=== PATIENT | female | born 1975 | race Caucasian/White ===

== ENCOUNTER 2018-11-07 17:06 | Emergency (ER) | payer MEDICAID ==
[~2018-11-07] VITALS: Ht 162.6 cm; Wt 81.6 kg
[2018-11-07 17:14] VITALS: BP 117/69
--- NOTE | 2018-11-07 17:57 | NUR ---
Patient ambulated to bed 1 with family. RN evaluating patient at bedside.
--- NOTE | 2018-11-07 18:00 | NUR ---
C/O LEFT FLANK PAIN X2 DAYS, +NAUSEA, WENT TO URGENT CARE TODAY WITH DX OF TITUS JOVEL, REFFERED TO ER. HX OF ASTHMA. DENIES N/V/D; SKIN IS PINK/WARM/DRY; AAOX4 WITH EVEN AND STEADY GAIT; LUNGS CLEAR BL; HR EVEN AND REGULAR; PT DENIES ANY FEVER, CP, SOB, OR COUGH AT THIS TIME; PATIENT STATES PAIN OF 10/10 AT THIS TIME; VSS; PATIENT POSITIONED FOR COMFORT; HOB ELEVATED; BEDRAILS UP X2; BED DOWN. ER MD MADE AWARE OF PT STATUS.
[2018-11-07] MEDS ORDERED: NACL 0.9% 1,000 ML IV SCH (18:29)
[2018-11-07] MEDS ORDERED: MORPHINE SULFATE 4 MG/ML SYR IVP ONE ×2 (18:30→19:45)
[2018-11-07 18:44] LABS: APPEARANCE,URINE HAZY (CLEAR); BILIRUBIN,URINE NEGATIVE (NEGATIVE); BLOOD, URINE NEGATIVE (NEGATIVE); COLOR,URINE YELLOW (YELLOW); LEUKOCYTE ESTERASE ,URINE NEGATIVE (NEGATIVE); NITRITE, URINE NEGATIVE (NEGATIVE); UGLUCOSE NEGATIVE (NEGATIVE)
[2018-11-07 19:03] LABS: BASOPHILS % (AUTO) 0.3 % (0.0-2.0); EOSINOPHILS # (AUTO) 0.4 K/uL (0-0.4); EOSINOPHILS % (AUTO) 3.7 % (0.0-4.0); HEMATOCRIT 40.4 % (36-48); HEMOGLOBIN 13.6 g/dL (12.0-16.0); LYMPHOCYTES # (AUTO) 2.6 K/uL (2.5-16.5); LYMPHOCYTES % (AUTO) 26.8 % (20.5-51.1); MEAN CORPUSCULAR HEMOGLOBIN 29 pg (27-31); MEAN CORPUSCULAR HGB CONC 34 g/dL (33-37); MEAN CORPUSCULAR VOLUME 86.1 fL (80-94); MONOCYTES # (AUTO) 0.7 K/uL (0.8-1.0); NEUTROPHILS # (AUTO) 6.1 K/uL (1.8-7.7); NEUTROPHILS % (AUTO) 62.2 % (42.2-75.2); PLATELET COUNT (AUTO) 361 K/uL (140-450); RED BLOOD CELL COUNT(AUTO) 4.69 MIL/uL (4.20-5.40); RED CELL DISTRIBUTION WIDTH 13.7 % (11.6-13.7); WHITE BLOOD COUNT (AUTO) 9.9 K/uL (4.8-10.8)
--- NOTE | 2018-11-07 19:04 | NUR ---
endorsed pt to pm nurse.
--- NOTE | 2018-11-07 19:35 | NUR ---
DR. WRIGHT BEDSIDE EVALUATING PT
[2018-11-07 20:33] LABS: ANION GAP 15.3 (8-16); CARBON DIOXIDE 26.7 mmol/L (21-32); CREATININE 0.7 mg/dL (0.6-1.3)
[2018-11-07 20:38] LABS: ALBUMIN 3.8 g/dL (3.4-5.0); TOTAL BILIRUBIN 0.2 mg/dL (0.0-1.0)
[2018-11-07 21:07] VITALS: BP 117/69
--- NOTE | 2018-11-07 21:07 | NUR ---
Patient discharged with v/s stable. Written and verbal after care instructions given and explained. Patient verbalized understanding. Ambulatory with steady gait. All questions addressed prior to discharge. Advised to follow up with PMD. PT WAS EDUCATED TO FOLLOW UP WITH PCP TOMORROW FOR FOLLOW UP CARE.
== END 2018-11-07 21:07 | disposition home or self-care (01) ==
LOC: MED 17:06
DX: K57.90 Diverticulosis of intestine, part unspecified, without perforation or abscess without bleeding (principal); J45.909 Unspecified asthma, uncomplicated; Z90.710 Acquired absence of both cervix and uterus; Z88.5 Allergy status to narcotic agent; Z88.8 Allergy status to other drugs, medicaments and biological substances
CPT/HCPCS: 36415; 74176; 80053; 81003; 81025; 83690; 85025; 96374; 96376; 99284; J2270; J7030

== ENCOUNTER 2019-05-28 19:44 | Emergency (ER) | payer MEDICAID ==
[~2019-05-28] VITALS: Ht 162.6 cm; Wt 90.7 kg
[2019-05-28 20:10] VITALS: BP 114/56
--- NOTE | 2019-05-28 22:32 | NUR ---
AMBULATED TO ER BED 9
--- NOTE | 2019-05-28 23:00 | NUR ---
44 YO F BIB SELF AND PRESENTS TO ED C/O CONSTANT 10/10 RUQ AND EPIGASTRIC PAIN THAT ALTERNATES BETWEEN FEELING SHARP AND DULL WITH N/V SINCE 0300 THIS MORNING. PT REPORTS HAVING SIMILAR PAIN IN THE PAST BUT NEVER THIS INTENSE. DENIES TREATING WITH PAIN MEDICATION AT HOME. LAST BM THIS MORNING; PT REPORTS NORMAL. DENIES DIARRHEA OR CONSTIPATION. ABD IS LARGE, SOFT, PLIABLE. REBOUND TENDERNESS TO RUQ NOTED DURING ERMD ASSESSMENT. PT IS CALM, COOPERATIVE. A/O X 4. SKIN PINK, WARM, DRY. BREATHING EVEN. UNLABORED. PMH-- ASTHMA RX-- INHALER NEEDED
--- NOTE | 2019-05-28 23:00 | NUR ---
DR. LIZ GRIFFITHS AT BEDSIDE.
[2019-05-28] MEDS ORDERED: NACL 0.9% 500 ML IV ONE (23:11)
[2019-05-28] MEDS ORDERED: fentaNYL 0.05 MG/ML VIAL IVP ONE (23:15)
[2019-05-28] MEDS ORDERED: ONDANSETRON 4 MG/2 ML VIAL IVP ONE (23:15)
--- NOTE | 2019-05-28 23:50 | NUR ---
MEDICATED WITH 0.5 MCG FENTANYL FOR 10/10 ABD PAIN. WILL REASSESS.
[2019-05-28 23:54] LABS: BASOPHILS % (AUTO) 0.3 % (0.0-2.0); EOSINOPHILS # (AUTO) 0.1 K/uL (0-0.4); EOSINOPHILS % (AUTO) 0.7 % (0.0-4.0); HEMATOCRIT 40.1 % (36-48); HEMOGLOBIN 13.2 g/dL (12.0-16.0); LYMPHOCYTES # (AUTO) 2.3 K/uL (2.5-16.5); LYMPHOCYTES % (AUTO) 16.4 % (20.5-51.1); MEAN CORPUSCULAR HEMOGLOBIN 28 pg (27-31); MEAN CORPUSCULAR HGB CONC 33 g/dL (33-37); MEAN CORPUSCULAR VOLUME 86.1 fL (80-94); MONOCYTES % (AUTO) 7.1 % (1.7-9.3); NEUTROPHILS # (AUTO) 10.5 K/uL (1.8-7.7); NEUTROPHILS % (AUTO) 75.5 % (42.2-75.2); PLATELET COUNT (AUTO) 416 K/uL (140-450); RED BLOOD CELL COUNT(AUTO) 4.65 MIL/uL (4.20-5.40)
--- NOTE | 2019-05-28 23:55 | NUR ---
PHLEB ATTEMPTING BLOOD DRAW AT BEDSIDE.
[2019-05-29 00:02] LABS: ANION GAP 13.3 (8-16); CREATININE 1.1 mg/dL (0.6-1.3); POTASSIUM 3.3 mmol/L (3.5-5.1)
--- NOTE | 2019-05-29 00:05 | NUR ---
US AT BEDSIDE.
[2019-05-29 00:08] LABS: ALBUMIN 3.6 g/dL (3.4-5.0); TOTAL BILIRUBIN 0.4 mg/dL (0.0-1.0)
--- NOTE | 2019-05-29 00:10 | NUR ---
PT REPORTS NO PAIN RELIEF; 10/[address] HILL NOTIFED.
[2019-05-29] MEDS ORDERED: fentaNYL 0.05 MG/ML VIAL IVP ONE (00:25)
--- NOTE | 2019-05-29 00:40 | NUR ---
MEDICATED WITH 0.5 MCG FENTANYL IVP FOR 10/10 ABD PAIN. WILL REASSESS IN 15-20 MINS.
--- NOTE | 2019-05-29 01:30 | NUR ---
PT IS RESTING IN BED WITH EYES CLOSED AND VSS. APPEARS TO BE SLEEPING. AROUSABLE TO LIGHT TOUCH AND VERBAL STIMULI. PT AWAKENS AND STATES "I'M STILL HAVING 9/10 PAIN WHENEVER I BREATHE IN. THE FENTANYL DIDN'T HELP". PT CLOSES EYES AGAIN AND RETURNS TO RESTING. DR. HILL MADE AWARE OF PAIN STATUS.
--- NOTE | 2019-05-29 02:35 | NUR ---
DR. HILL REEVAL AT BEDSIDE.
[2019-05-29 02:51] VITALS: BP 97/48
--- NOTE | 2019-05-29 02:51 | NUR ---
Patient discharged with v/s stable. Written and verbal after care instructions given and explained. Patient alert, oriented and verbalized understanding of instructions. Ambulatory with steady gait. All questions addressed prior to discharge. ID band removed. Patient advised to follow up with PMD. Rx of Zofran and Tramadol given. Patient educated on indication of medication including possible reaction and side effects. Opportunity to ask questions provided and answered.
== END 2019-05-29 02:15 | disposition home or self-care (01) ==
LOC: MED 19:44
DX: R16.0 Hepatomegaly, not elsewhere classified (principal); R11.10 Vomiting, unspecified; J45.909 Unspecified asthma, uncomplicated; Z90.710 Acquired absence of both cervix and uterus; Z88.5 Allergy status to narcotic agent; Z88.8 Allergy status to other drugs, medicaments and biological substances
CPT/HCPCS: 36415; 76705; 80053; 83690; 85025; 96361; 96374; 96375; 96376; 99284; J2405; J3010; J7030; Q0092

== ENCOUNTER 2020-11-01 11:27 | Inpatient (IN) | payer MEDICAID, SELFPAY ==
[~2020-11-01] VITALS: Ht 162.6 cm; Wt 71.7 kg
[2020-11-01 11:37] VITALS: BP 125/61
--- NOTE | 2020-11-01 12:05 | NUR ---
TO ER BED #3
--- NOTE | 2020-11-01 12:21 | NUR ---
45 Y/O FEMALE C/O HEMATURIA X TODAY, L FLANK PAIN X 2MONTHS. PAIN IS INTERMITTENT BUT THE PAIN IS WORSE TODAY. PT RATES PAIN 9/10 THAT SHE DESCRIBES "SHARP PAIN" AND THAT IT IF FEELS LIKE THERES AN "AIR BUBBLE". PT C/O HEMATURNA, URINARY FREQUENCY AND PAIN AT THE END OF URINATING. PT A/O X4 WITH EVEN AND UNLABORED RESPIRATIONS PMH: ASTHMA, HYSTERECTOMY ALLERGIES:IBUPROFEN AND CODEINE
--- NOTE | 2020-11-01 12:29 | NUR ---
DR SOMERS AT BEDSIDE
[2020-11-01] MEDS ORDERED: ONDANSETRON 4 MG/2 ML VIAL IVP ONE ×2 (12:40→15:20)
[2020-11-01] MEDS ORDERED: KETOROLAC 30 MG/ML VIAL IVP ONE (12:40)
[2020-11-01] MEDS ORDERED: fentaNYL citrate 0.05 MG/ML VIAL IVP ONE ×2 (12:40→15:20)
--- NOTE | 2020-11-01 12:47 | NUR ---
PT TAKEN TO CT VIA W/C
[2020-11-01 13:48] LABS: BASOPHILS # (AUTO) 0.1 K/uL (0.00-0.22); BASOPHILS % (AUTO) 0.5 % (0.0-2.0); EOSINOPHILS # (AUTO) 0.1 K/uL (0-0.4); HEMATOCRIT 38.8 % (36-48); LYMPHOCYTES # (AUTO) 1.5 K/uL (2.5-16.5); LYMPHOCYTES % (AUTO) 13.4 % (20.5-51.1); MEAN CORPUSCULAR HEMOGLOBIN 29 pg (27-31); MEAN CORPUSCULAR HGB CONC 34 g/dL (33-37); MEAN CORPUSCULAR VOLUME 87.3 fL (80-94); MONOCYTES # (AUTO) 0.7 K/uL (0.8-1.0); MONOCYTES % (AUTO) 5.9 % (1.7-9.3); NEUTROPHILS # (AUTO) 8.9 K/uL (1.8-7.7); NEUTROPHILS % (AUTO) 79.2 % (42.2-75.2); PLATELET COUNT (AUTO) 360 K/uL (140-450); RED BLOOD CELL COUNT(AUTO) 4.44 MIL/uL (4.20-5.40); RED CELL DISTRIBUTION WIDTH 14.6 % (11.6-13.7); WHITE BLOOD COUNT (AUTO) 11.3 K/uL (4.8-10.8)
[2020-11-01 13:58] LABS: ANION GAP 17.3 (8-16); CARBON DIOXIDE 27.6 mmol/L (21-32); CREATININE 0.6 mg/dL (0.6-1.3); POTASSIUM 3.9 mmol/L (3.5-5.1)
[2020-11-01] MEDS ORDERED: cefTRIAXone 1,000 MG VIAL ONE (13:59)
[2020-11-01] MEDS ORDERED: MORPHINE SULFATE 4 MG/ML SYR IVP ONE ×2 (14:00→14:35)
--- NOTE | 2020-11-01 14:05 | NUR ---
PT C/O SEVERE FLANK PAIN. REQUESTING FURTHER PAIN MEDICATIONS. ERMD MADE AWARE. DIMMED PTS LIGHTS FOR COMFORT.
[2020-11-01 14:18] LABS: ALBUMIN 3.9 g/dL (3.4-5.0); TOTAL BILIRUBIN 0.6 mg/dL (0.0-1.0)
[2020-11-01 14:39] LABS: BILIRUBIN,URINE NEGATIVE (NEGATIVE); BLOOD, URINE 3+ (NEGATIVE); LEUKOCYTE ESTERASE ,URINE 2+ (NEGATIVE); NITRITE, URINE POSITIVE (NEGATIVE); UGLUCOSE TRACE (NEGATIVE)
[2020-11-01 14:43] LABS: COLOR,URINE ORANGE (YELLOW)
[2020-11-01 14:59] LABS: APPEARANCE,URINE HAZY (CLEAR); RBC,URINE NONE SEEN /HPF (0-5)
--- NOTE | 2020-11-01 15:30 | NUR ---
PT STILL C/O 01/27 FLANK PAIN. PT REQUESTING MORE PAIN MEDS. ERMD MADE AWARE. PT GIVEN TOWELS TO PUT PRESSURE ON HER BACK.
[2020-11-01] MEDS ORDERED: HYDROcodone/APAP 5/325 MG 1 TAB TAB PO PRN (17:15)
[2020-11-01] MEDS ORDERED: LORazepam 2 MG/ML VIAL IM/IVP PRN (17:15)
[2020-11-01] MEDS ORDERED: MORPHINE SULFATE 2 MG/ML SYR IVP PRN (17:15)
[2020-11-01] MEDS ORDERED: ACETAMINOPHEN 325 MG TAB PO PRN (17:15)
[2020-11-01] MEDS ORDERED: ONDANSETRON 4 MG/2 ML VIAL IVP PRN (17:15)
[2020-11-01] MEDS: NACL 0.9% 1,000 ML IV SCH (17:45)
--- NOTE | 2020-11-01 17:48 | NUR ---
PT GIVEN DINNER TRAY. PT ON MATTRESS RENOVATOR. VSS. WILL CONTINUE TO MONITOR
[2020-11-01 18:09] LABS: PROTHROMBIN TIME 9.6 secs (10.8-13.4)
--- NOTE | 2020-11-01 18:13 | NUR ---
DR BRISCOE AT BEDSIDE EVALUATING PT
[2020-11-01 18:16] LABS: BARBITURATE, URINE NEGATIVE ng/ml (NEG <=200); BENZODIAZEPINE, URINE NEGATIVE ng/mL (NEG <=200); CANNABINOID, URINE NEGATIVE ng/mL (NEG <=50); COCAINE, URINE NEGATIVE ng/mL (NEG <=300); OPIATE, URINE NEGATIVE ng/mL (NEG <=2000); PHENCYCLIDINE SCREEN,URINE NEGATIVE ng/mL (NEG <=25)
[2020-11-01 18:17] LABS: CHOL/HDL RATIO 2.9 (1-4.5); FREE T4 (FREE THYROXINE) 1.02 ng/dL (0.76-1.46); MAGNESIUM 2.1 mg/dL (1.8-2.4); THYROID STIMULATING HORMONE 1.66 uIU/mL (0.34-3.74)
[2020-11-01] MEDS ORDERED: KETOROLAC 30 MG/ML VIAL IM PRN (18:35)
--- NOTE | 2020-11-01 18:40 | NUR ---
PT C/O NAUSEA, GIVEN EMESIS BAG. ORDER OF PRN ZOFRAN GIVEN Addendum: 11/01/20 at 1913 by [email or web address] PT VOMITED.
--- NOTE | 2020-11-01 19:14 | NUR ---
REPORT GIVEN TO YUAN BOWEN, TRANSFER OF CARE AT THIS TIME
--- NOTE | 2020-11-01 20:25 | NUR ---
REPORT GIVEN FROM ER NURSE. ADMITTED A 45 Y/O FEMALE A O X4 NO ACUTE DISTRESS. RESPIRATION EVEN AND UNLABORED. DX: INTRACTABLE FLANK PAIN, URETHRITIS, PYELONEPHRITIS, UTI. IVF OF NS INFUSING 100 ML/HR. DENIES PAIN AT THIS TIME. SAFETY MEASURES IN PLACE. CALL LIGHT WITHIN REACH. MRSA SCREENING DONE. PATIENT IN BED RESTING COMFORTABLY.
--- NOTE | 2020-11-01 20:30 | NUR ---
Patient will be admitted to care of DR. BRISCOE. Admited to TELEMETRY. Will go to room 104B. Belongings list completed. Report to DEBORAH BOWEN. PT TRANSPORTED BY 2 RN'S VIA [facility]. VSS PRIOR TRANSPORT.
[2020-11-01] MEDS: ZOLPIDEM 5 MG TAB PO PRN (22:31)
--- NOTE | 2020-11-01 22:33 | NUR ---
PATIENT COMPLAINED OF INABILITY TO SLEEP, AMBIEN PRN GIVEN PER MD ORDERED.
[2020-11-02] VITALS: BP 86/51
[2020-11-02] MEDS: NACL 0.9% 1,000 ML IV SCH ×4 (03:15→23:15)
[2020-11-02 04:00] VITALS: BP 96/41
[2020-11-02 06:52] LABS: ANION GAP 8.5 (8-16); CARBON DIOXIDE 31.1 mmol/L (21-32); CREATININE 0.6 mg/dL (0.6-1.3); POTASSIUM 3.6 mmol/L (3.5-5.1)
[2020-11-02 06:53] LABS: BASOPHILS % (AUTO) 0.1 % (0.0-2.0); EOSINOPHILS # (AUTO) 0.1 K/uL (0-0.4); HEMATOCRIT 36.2 % (36-48); LYMPHOCYTES # (AUTO) 2.4 K/uL (2.5-16.5); LYMPHOCYTES % (AUTO) 23.1 % (20.5-51.1); MEAN CORPUSCULAR HEMOGLOBIN 29 pg (27-31); MEAN CORPUSCULAR HGB CONC 33 g/dL (33-37); MEAN CORPUSCULAR VOLUME 88.6 fL (80-94); MONOCYTES # (AUTO) 0.7 K/uL (0.8-1.0); MONOCYTES % (AUTO) 6.9 % (1.7-9.3); NEUTROPHILS # (AUTO) 7.3 K/uL (1.8-7.7); NEUTROPHILS % (AUTO) 68.9 % (42.2-75.2); PLATELET COUNT (AUTO) 349 K/uL (140-450); RED BLOOD CELL COUNT(AUTO) 4.09 MIL/uL (4.20-5.40); RED CELL DISTRIBUTION WIDTH 14.7 % (11.6-13.7); WHITE BLOOD COUNT (AUTO) 10.6 K/uL (4.8-10.8)
[2020-11-02 07:06] LABS: MAGNESIUM 2.2 mg/dL (1.8-2.4); PHOSPHORUS 4.7 mg/dL (2.5-4.9)
--- NOTE | 2020-11-02 07:20 | NUR ---
ENDORSED TO MORNING NURSE FOR CONTINUITY OF CARE. PATIENT STABLE.
--- NOTE | 2020-11-02 07:25 | NUR ---
PT RECEIVED FROM CASING COOKER NURSE. EYES CLOSED EASY TO AROUSE. BREATHING SYMMETRICAL. PT ON ROOM AIR. NO S/S OF DISTRESS. NO COMPLAINS OF PAIN AT THIS TIME . PT IS ABLE TO MAKE NEEDS KNOWN. CALL LIGHT WITHIN REACH. ALL SAFETY MEASURES ARE IN PLACE
[2020-11-02 08:00] VITALS: BP 110/93
--- NOTE | 2020-11-02 08:55 | NUR ---
PATIENT HAS BEEN SCREENED AND CATEGORIZED HIGH NUTRITION RISK. PATIENT WILL BE SEEN WITHIN 1-2 DAYS OF ADMISSION. 11/02/20-11/03/20 RECEIVED FNS REFERRAL FOR UNINTENTIONAL WEIGHT LOSS. KIARA ORTIZ RD
--- NOTE | 2020-11-02 09:07 | NUR ---
PT RESTING IN BED. DENIES PAIN AT THIS TIME. PT DID NOT LIKE FOOD. NUTRITION NUMBER PROVIDED.
--- NOTE | 2020-11-02 09:23 | NUR ---
MEDICATIONS GIVEN PER MD ORDER. PT EDUCATED VERBALIZED UNDERSTANDING. PT TOLERATED WELL. CALL LIGHT WITHIN REACH. ALL SAFETY MEASURES ARE IN PLACE
--- NOTE | 2020-11-02 11:42 | NUR ---
PT ROUNDED ON. SON AT BEDSIDE. BREATHING SYMMETRICAL. PT ON ROOM AIR. NO S/S OF DISTRESS. NO COMPLAINS OF PAIN AT THIS TIME . PT IS ABLE TO MAKE NEEDS KNOWN. CALL LIGHT WITHIN REACH. ALL SAFETY MEASURES ARE IN PLACE
--- NOTE | 2020-11-02 13:20 | NUR ---
PT DENIES PAIN. PT RESTING COMFORTABLY IN BED. ALL SAFETY MEASURES ARE IN PLACE. CALL LIGHT WITHIN REACH.
[2020-11-02] MEDS: DOCUSATE SODIUM 100 MG GELCAP PO PRN (13:40)
--- NOTE | 2020-11-02 14:08 | NUR ---
11/02/20 RD INITIAL ASSESSMENT COMPLETED PLEASE REFER TO NUTRITION ASSESSMENT UNDER CARE ACTIVITY FOR ESTIMATED NUTRITIONAL NEEDS. 1. CONTINUE REGULAR DIET TOLERATED 2. FOLLOW PATIENTS FOOD PREFERENCE OF NO RED MEAT 3. RD PROVIDED NUTRITION RECOMMENDATIONS TO INCREASE WHOLE GRAIN CONSUMPTION. PATIENT ACCEPTED 4. RD TO FOLLOW-UP 5-7 DAYS, LOW RISK KIARA ORTIZ, RD
--- NOTE | 2020-11-02 15:39 | NUR ---
PT ROUNDED ON. PT STATES NO PAIN AND EDUCATED ON DX. NO S/S OF DISTRESS. ALL SAFETY MEASURES IN PLACE. CALL LIGHT WITHIN REACH.
--- NOTE | 2020-11-02 16:15 | NUR ---
PT DOES NOT FEEL COMFORTABLE WITH ROOMMATE. PT EDUCATED. PT STATES SHE WILL GO HOME IF SHE HAS ONE
--- NOTE | 2020-11-02 18:00 | NUR ---
PT IV FLUIDS CHANGED. KIDS AT BEDSIDE. PT STATES SHE WANTS TO GO HOME TOMORROW BY NOON.
--- NOTE | 2020-11-02 19:15 | NUR ---
RECEIVED PATIENT FROM AM NURSE. PT ON BED RESTING WITH DAUGHTER AT BEDSIDE. NO DISTRESS. SKIN WARM AND DRY TO TOUCH. ON ROOM AIR . EWING CATHETER IN PLACE. BILATERAL LOWER EXTREMITIES DRESSING CLEAN AND DRY. CALL LIGHT WITHIN REACH. WILL CONTINUE TO MONITOR.
--- NOTE | 2020-11-02 19:29 | NUR ---
RECEIVED PATIENT FROM AM NURSE STEPHANE. PATIENT ON BED RESTING. IVF OF NS INFUSING IN THE LEFT FOREARM. NO DISTRESS. DENIES PAIN. AFEBRILE. CALL LIGHT WITHIN REACH. WILL CONTINUE TO MONITOR.
--- NOTE | 2020-11-02 19:29 | NUR ---
PT ENDORSED TO COMMISSIONER OF OFFICIALS RN FOR CONTINUITY OF CARE. PT STABLE.
[2020-11-02 20:00] VITALS: BP 103/54
[2020-11-02] MEDS: ZOLPIDEM 5 MG TAB PO PRN (22:38)
--- NOTE | 2020-11-02 22:40 | NUR ---
PATIENT UNABLE TO SLEEP ,AMBIEN GIVEN PER MD ORDERED.
--- NOTE | 2020-11-03 03:43 | NUR ---
CHECKED PT, ASLEEP IN BED.
[2020-11-03] MEDS: NACL 0.9% 1,000 ML IV SCH ×2 (03:45→09:15)
[2020-11-03 04:00] VITALS: BP 90/50
[2020-11-03 06:39] LABS: PHOSPHORUS 3.5 mg/dL (2.5-4.9)
[2020-11-03 06:40] LABS: ANION GAP 12.6 (8-16); CARBON DIOXIDE 24.8 mmol/L (21-32); CREATININE 0.5 mg/dL (0.6-1.3); POTASSIUM 3.4 mmol/L (3.5-5.1)
[2020-11-03 06:46] LABS: BASOPHILS % (AUTO) 0.6 % (0.0-2.0); EOSINOPHILS # (AUTO) 0.3 K/uL (0-0.4); EOSINOPHILS % (AUTO) 4.3 % (0.0-4.0); HEMOGLOBIN 11.1 g/dL (12.0-16.0); LYMPHOCYTES # (AUTO) 2.4 K/uL (2.5-16.5); LYMPHOCYTES % (AUTO) 34.2 % (20.5-51.1); MEAN CORPUSCULAR HEMOGLOBIN 29 pg (27-31); MEAN CORPUSCULAR HGB CONC 34 g/dL (33-37); MEAN CORPUSCULAR VOLUME 87.7 fL (80-94); MONOCYTES # (AUTO) 0.5 K/uL (0.8-1.0); MONOCYTES % (AUTO) 7.2 % (1.7-9.3); NEUTROPHILS # (AUTO) 3.8 K/uL (1.8-7.7); NEUTROPHILS % (AUTO) 53.7 % (42.2-75.2); PLATELET COUNT (AUTO) 312 K/uL (140-450); RED BLOOD CELL COUNT(AUTO) 3.77 MIL/uL (4.20-5.40); RED CELL DISTRIBUTION WIDTH 14.8 % (11.6-13.7); WHITE BLOOD COUNT (AUTO) 7.1 K/uL (4.8-10.8)
--- NOTE | 2020-11-03 07:16 | NUR ---
ENDORSED TO AM NURSE FOR CONTINUITY OF CARE. PT STABLE.
--- NOTE | 2020-11-03 07:16 | NUR ---
RECEIVED PATIENT FROM NIGHT NURSE. PATIENT IN BED AWAKE AND ALERT. RESP EVEN AND UNLABORED ON ROOM AIR. C/O MILD PAIN BUT TOLERABLE AT THIS TIME. LFA 20G INFUSING NS. PLAN OF CARE DISCUSSED, PATIENT VERBALIZED UNDERSTANDING. HOB ELEVATED, SAFETY MEASURES IN PLACE. BED IN LOW POSITIONS. CALL LIGHT WITHIN REACH. WILL CONTINUE TO MONITOR.
[2020-11-03] MEDS ORDERED: POTASSIUM CHLORIDE 10 MEQ TABER PO SCH (09:30)
[2020-11-03] MEDS: DOCUSATE SODIUM 100 MG GELCAP PO PRN (10:04)
--- NOTE | 2020-11-03 10:33 | NUR ---
PATIENT IN BED AWAKE AND ALERT. MORNING ROUTINE MEDICATION UNABLE TO GIVE D/T NO IV ACCESS. SEVERAL ATTEMPTS MADE UNSUCCESSFUL. DR BRISCOE MADE AWARE AND GAVE ORDER FOR ROCEPHIN 1GM IM X1 AND DULCOLAX 10MG PO PRN X1 FOR CONSTIPATION. ORDERS READBACK CONFIRMED AND CARRIED OUT.
[2020-11-03] MEDS ORDERED: cefTRIAXone 1,000 MG in LIDOCAINE MPF 1% 2.1 ML IM ONE (10:40)
[2020-11-03] MEDS ORDERED: cefTRIAXone 1,000 MG in LIDOCAINE MPF 1% 2.1 ML INJ SCH (11:00)
[2020-11-03] MEDS ORDERED: bisacodyL 5 MG TABEC PO SCH (11:00)
[2020-11-03] MEDS ORDERED: LACT-2 (12:04)
[2020-11-03] MEDS ORDERED: SULF-59 PO (12:04)
--- NOTE | 2020-11-03 12:31 | NUR ---
PATIENT RECEIVED DISCHARGE ORDER. WILL FOLLOW UP WITH PATIENT FOR NEUROBIOLOGIST TIME. PATIENT IN BED AWAKE AND ALERT. NO NOTED DISTRESS. CALL LIGHT WITHIN REACH. WILL CONTINUE TO MONITOR.
[2020-11-03 12:39] VITALS: BP 99/54
--- NOTE | 2020-11-03 13:37 | NUR ---
PATIENT LEFT DISCHARGED HOME WITH SON. DISCHARGE INSTRUCTIONS GIVEN, PATIENT VERBALIZED UNDERSTANDING. VACC N/A AT THIS TIME. PATIENT LEFT WITH ALL PERSONAL BELONGINGS. PATIENT LEFT IN STABLE CONDITION.
== END 2020-11-03 13:35 | disposition home or self-care (01) | DRG 463 ==
LOC: MED 11:27 → MTU 17:19
PROVIDERS: ADMIT Family Medicine; ATTEND Family Medicine
DX: N12 Tubulo-interstitial nephritis, not specified as acute or chronic (principal); E78.5 Hyperlipidemia, unspecified; F15.10 Other stimulant abuse, uncomplicated; R31.9 Hematuria, unspecified; N28.89 Other specified disorders of kidney and ureter; Z20.822 Contact with and (suspected) exposure to COVID-19
CPT/HCPCS: 36415; 71045; 80048; 80053; 80305; 81001; 82150; 83036; 83690; 83735; 83880; 84100; 84439; 84443; 84484; 85025; 85610; 85730; 87081; 87086; 96365; 96366; 96372; 96376; 99285; J0696; J2001; J2270; J2405; J3010; J7060

== ENCOUNTER 2021-02-27 04:04 | Emergency (ER) | payer MEDICAID, SELFPAY ==
[~2021-02-27] VITALS: Ht 162.6 cm; Wt 67.1 kg
[~2021-02-27 04:04] MED LIST: LACT-2; SULF-59 PO
[2021-02-27 04:12] VITALS: BP 110/63
--- NOTE | 2021-02-27 04:15 | NUR ---
TO LOBBY AMBULATORY
[2021-02-27] MEDS ORDERED: NITR100C7 PO (04:49)
[2021-02-27] MEDS ORDERED: PHEN-1877 PO (04:49)
[2021-02-27 04:55] VITALS: BP 110/63
--- NOTE | 2021-02-27 04:55 | NUR ---
SEEND AND DISCHARGED BY NOREEN HENRIQUEZ. NO NURSING INTERVENTIONS NEEDED. Patient discharged with v/s stable. Written and verbal after care instructions given and explained. Patient alert, oriented and verbalized understanding of instructions. Ambulatory with steady gait. All questions addressed prior to discharge. ID band removed. Patient advised to follow up with PMD. Rx of MACROBID AND PYRIDIUM given. Patient educated on indication of medication including possible reaction and side effects. Opportunity to ask questions provided and answered.
== END 2021-02-27 04:55 | disposition home or self-care (01) ==
LOC: MED 04:04
DX: N39.0 Urinary tract infection, site not specified (principal); J45.909 Unspecified asthma, uncomplicated; Z79.899 Other long term (current) drug therapy; Z88.5 Allergy status to narcotic agent; Z88.6 Allergy status to analgesic agent; Z90.710 Acquired absence of both cervix and uterus; Z98.890 Other specified postprocedural states
CPT/HCPCS: 81002; 81025; 99283

== ENCOUNTER 2022-10-23 03:02 | Emergency (ER) | payer MEDICAID ==
[~2022-10-23] VITALS: Ht 162.6 cm; Wt 70.3 kg
[~2022-10-23 03:02] MED LIST changes: +NITR100C7 PO; +PHEN-1877 PO
[2022-10-23 03:05] VITALS: BP 118/82
--- NOTE | 2022-10-23 03:27 | NUR ---
47 Y/O F FROM HOME PRESENTS WITH SORE THROAT AND SOB WITH TIGHTNESS IN THROAT WITH SOME WHEEZING. PT STATED SHE HAS A DRY COUGH DENIES ANY NVD, HEADACHES.PT STATED SHE HAD BRONCHITIS X5WKS BUT GOT BETTER. PT IS A&OX4, SKIN INTACT. PMH- ASTHMA ALLERGIES-CODEINE, IBUPROFEN, CODEINE MEDS-INHALER
[2022-10-23] MEDS ORDERED: ALBUTEROL SULFATE/IPRATROPIU 3 ML SOL IH ONE (03:40)
[2022-10-23 03:57] VITALS: BP 97/41
[2022-10-23] MEDS ORDERED: predniSONE 20 MG TAB PO ONE (04:25)
[2022-10-23] MEDS ORDERED: diazePAM 5 MG TAB PO ONE (04:25)
[2022-10-23] MEDS ORDERED: ALBU0.0912 INH (05:02)
[2022-10-23] MEDS ORDERED: PRED20TA5 PO (05:02)
--- NOTE | 2022-10-23 05:31 | NUR ---
PT. TAKEN TO X-RAY
--- NOTE | 2022-10-23 05:39 | NUR ---
PT BACK FROM X-RAY
--- NOTE | 2022-10-23 06:00 | NUR ---
Patient discharged with v/s stable. Written and verbal after care instructions given and explained. Patient alert, oriented and verbalized understanding of instructions. Ambulatory with steady gait. All questions addressed prior to discharge. ID band removed. Patient advised to follow up with PMD. Rx of ALBUTEROL SULFATE AND PREDNISONE given. Opportunity to ask questions provided and answered.
== END 2022-10-23 06:00 | disposition home or self-care (01) ==
LOC: MED 03:02
DX: R06.02 Shortness of breath (principal); Z20.822 Contact with and (suspected) exposure to COVID-19; M54.2 Cervicalgia; J45.909 Unspecified asthma, uncomplicated; Z88.5 Allergy status to narcotic agent; Z88.8 Allergy status to other drugs, medicaments and biological substances; Z79.899 Other long term (current) drug therapy
CPT/HCPCS: 70360; 87426; 87804; 94640; 94760; 99284; J7512

== ENCOUNTER 2023-02-09 04:54 | Emergency (ER) | payer MEDICAID ==
[~2023-02-09] VITALS: Ht 162.6 cm; Wt 73.5 kg
[~2023-02-09 04:54] MED LIST changes: +ALBU0.0912 INH; +PRED20TA5 PO
[2023-02-09 05:09] VITALS: BP 107/74; PULSE 77; RESP 18; TEMP 97.1; O2SAT 99
[2023-02-09] MEDS ORDERED: MORPHINE SULFATE 4 MG/ML SYR IVP ONE (05:20)
[2023-02-09] MEDS ORDERED: fentaNYL citrate 0.05 MG/ML VIAL IVP ONE (05:50)
[2023-02-09 06:13] LABS: APPEARANCE,URINE CLEAR (CLEAR); BILIRUBIN,URINE NEGATIVE (NEGATIVE); BLOOD, URINE TRACE-I (NEGATIVE); COLOR,URINE YELLOW (YELLOW); LEUKOCYTE ESTERASE ,URINE NEGATIVE (NEGATIVE); NITRITE, URINE NEGATIVE (NEGATIVE); PROTEIN,URINE NEGATIVE (NEGATIVE); UGLUCOSE NEGATIVE (NEGATIVE); UROBILINOGEN,URINE 0.2 EU/dL (0.2 - 1)
[2023-02-09 06:28] LABS: ALBUMIN 3.8 g/dL (3.4-5.0); ANION GAP 10.6 (8-16); CALCIUM 9.5 mg/dL (8.5-10.1); CARBON DIOXIDE 27.9 mmol/L (21-32); CREATININE 0.6 mg/dL (0.6-1.3); POTASSIUM 4.5 mmol/L (3.5-5.1); TOTAL BILIRUBIN 0.3 mg/dL (0.0-1.0); TOTAL PROTEIN, SERUM 7.5 g/dL (6.4-8.2)
[2023-02-09 07:19] LABS: BASOPHILS % (AUTO) 0.5 % (0.0-2.0); EOSINOPHILS # (AUTO) 0.4 K/uL (0-0.4); EOSINOPHILS % (AUTO) 5.7 % (0.0-4.0); HEMATOCRIT 36.2 % (36-48); HEMOGLOBIN 12.3 g/dL (12.0-16.0); LYMPHOCYTES # (AUTO) 2.2 K/uL (2.5-16.5); LYMPHOCYTES % (AUTO) 28.3 % (20.5-51.1); MEAN CORPUSCULAR HEMOGLOBIN 30 pg (27-31); MEAN CORPUSCULAR HGB CONC 34 g/dL (33-37); MEAN CORPUSCULAR VOLUME 86.8 fL (80-94); MONOCYTES # (AUTO) 0.6 K/uL (0.8-1.0); MONOCYTES % (AUTO) 7.5 % (1.7-9.3); NEUTROPHILS # (AUTO) 4.4 K/uL (1.8-7.7); PLATELET COUNT (AUTO) 398 K/uL (140-450); RED BLOOD CELL COUNT(AUTO) 4.17 MIL/uL (4.20-5.40); RED CELL DISTRIBUTION WIDTH 14.2 % (11.6-13.7); WHITE BLOOD COUNT (AUTO) 7.7 K/uL (4.8-10.8)
[2023-02-09] MEDS ORDERED: POLY17PD72 PO (07:50)
[2023-02-09 08:25] VITALS: BP 118/71; PULSE 73; RESP 16; TEMP 97.4; O2SAT 98
== END 2023-02-09 08:18 | disposition home or self-care (01) ==
LOC: MED 04:54
DX: R10.9 Unspecified abdominal pain (principal); J45.909 Unspecified asthma, uncomplicated; Z79.899 Other long term (current) drug therapy; Z88.5 Allergy status to narcotic agent; Z88.6 Allergy status to analgesic agent; Z88.8 Allergy status to other drugs, medicaments and biological substances
CPT/HCPCS: 36415; 74176; 80053; 81003; 81025; 83690; 85025; 96374; 99285; J3010; J2270

== ENCOUNTER 2023-04-28 23:16 | Emergency (ER) | payer MEDICAID ==
[~2023-04-28] VITALS: Ht 160 cm; Wt 70.3 kg
[~2023-04-28 23:16] MED LIST changes: +POLY17PD72 PO
[2023-04-28 23:31] VITALS: BP 105/61; PULSE 77; RESP 20; TEMP 98; O2SAT 98
[2023-04-29] VITALS: BP 105/61; PULSE 77; RESP 20; TEMP 98; O2SAT 98
[2023-04-29 00:35] LABS: APPEARANCE,URINE CLEAR (CLEAR); BILIRUBIN,URINE NEGATIVE (NEGATIVE); BLOOD, URINE NEGATIVE (NEGATIVE); COLOR,URINE YELLOW (YELLOW); LEUKOCYTE ESTERASE ,URINE NEGATIVE (NEGATIVE); NITRITE, URINE NEGATIVE (NEGATIVE); PROTEIN,URINE NEGATIVE (NEGATIVE); UGLUCOSE NEGATIVE (NEGATIVE); UROBILINOGEN,URINE 0.2 EU/dL (0.2 - 1)
[2023-04-29 00:39] LABS: BASOPHILS # (AUTO) 0.1 K/uL (0.00-0.22); BASOPHILS % (AUTO) 0.7 % (0.0-2.0); EOSINOPHILS # (AUTO) 0.5 K/uL (0-0.4); EOSINOPHILS % (AUTO) 5.6 % (0.0-4.0); HEMATOCRIT 40.6 % (36-48); HEMOGLOBIN 13.6 g/dL (12.0-16.0); LYMPHOCYTES # (AUTO) 3.1 K/uL (2.5-16.5); LYMPHOCYTES % (AUTO) 34.5 % (20.5-51.1); MEAN CORPUSCULAR HEMOGLOBIN 29 pg (27-31); MEAN CORPUSCULAR HGB CONC 34 g/dL (33-37); MEAN CORPUSCULAR VOLUME 86.9 fL (80-94); MONOCYTES # (AUTO) 0.7 K/uL (0.8-1.0); MONOCYTES % (AUTO) 8.1 % (1.7-9.3); NEUTROPHILS # (AUTO) 4.6 K/uL (1.8-7.7); NEUTROPHILS % (AUTO) 51.1 % (42.2-75.2); PLATELET COUNT (AUTO) 390 K/uL (140-450); RED BLOOD CELL COUNT(AUTO) 4.67 MIL/uL (4.20-5.40); RED CELL DISTRIBUTION WIDTH 13.7 % (11.6-13.7)
[2023-04-29 00:52] LABS: ANION GAP 9.8 (8-16); CARBON DIOXIDE 30.8 mmol/L (21-32); CREATININE 0.7 mg/dL (0.6-1.3); POTASSIUM 3.6 mmol/L (3.5-5.1)
[2023-04-29 00:56] LABS: ALBUMIN 3.8 g/dL (3.4-5.0); BILIRUBIN,DIRECT 0.1 mg/dL (0.0-0.3); TOTAL BILIRUBIN 0.2 mg/dL (0.0-1.0); TOTAL PROTEIN, SERUM 7.9 g/dL (6.4-8.2)
== END 2023-04-29 04:40 | disposition home or self-care (01) ==
LOC: MED 23:16
DX: K82.4 Cholesterolosis of gallbladder (principal); K76.9 Liver disease, unspecified; J45.909 Unspecified asthma, uncomplicated; Z79.899 Other long term (current) drug therapy; Z79.2 Long term (current) use of antibiotics; Z88.5 Allergy status to narcotic agent; Z88.6 Allergy status to analgesic agent; Z88.4 Allergy status to anesthetic agent
CPT/HCPCS: 36415; 74176; 76705; 80048; 80076; 81003; 81025; 82150; 83690; 85025; 93005; 99284; Q0092

== ENCOUNTER 2023-12-28 15:09 | Emergency (ER) | payer MEDICAID ==
[~2023-12-28] VITALS: Ht 162.6 cm; Wt 74.8 kg
[2023-12-28 15:15] VITALS: PULSE 85; RESP 20; TEMP 98; O2SAT 97
== END 2023-12-28 15:55 | disposition left against medical advice (07) ==
LOC: MED 15:09
DX: M79.671 Pain in right foot (principal); J45.909 Unspecified asthma, uncomplicated; Z79.2 Long term (current) use of antibiotics; Z79.899 Other long term (current) drug therapy; Z88.5 Allergy status to narcotic agent; Z88.6 Allergy status to analgesic agent
CPT/HCPCS: 99281

== ENCOUNTER 2023-12-29 13:02 | Emergency (ER) | payer MEDICAID | END 2023-12-29 13:13 | disposition left against medical advice (07) | LOC: MED 13:02 | DX: Z53.21 Procedure and treatment not carried out due to patient leaving prior to being seen by health care provider (principal) ==

== ENCOUNTER 2024-01-23 13:20 | Emergency (ER) | payer MEDICAID ==
[~2024-01-23] VITALS: Ht 160 cm; Wt 81.4 kg
[2024-01-23 13:43] VITALS: BP 105/70; PULSE 103; RESP 18; TEMP 98.1; O2SAT 97
[2024-01-23] MEDS ORDERED: DICL20GE TP (15:14)
[2024-01-23] MEDS ORDERED: ACET500T99 PO (15:14)
[2024-01-23 15:27] VITALS: PULSE 88; RESP 16; TEMP 98.1; O2SAT 98
== END 2024-01-23 15:27 | disposition home or self-care (01) ==
LOC: MED 13:20
DX: S93.402A Sprain of unspecified ligament of left ankle, initial encounter (principal); J45.909 Unspecified asthma, uncomplicated; Z90.710 Acquired absence of both cervix and uterus; Z98.890 Other specified postprocedural states; Z79.899 Other long term (current) drug therapy; Z88.5 Allergy status to narcotic agent; Z88.6 Allergy status to analgesic agent; Z88.4 Allergy status to anesthetic agent; W18.39XA Other fall on same level, initial encounter; Y92.096 Garden or yard of other non-institutional residence as the place of occurrence of the external cause; Y93.89 Activity, other specified; Y99.8 Other external cause status
CPT/HCPCS: 73610; 99283